=== PATIENT | female | born 1955 | race American Indian/Alaskan Native ===

== ENCOUNTER 2017-08-26 15:48 | Emergency (ER) | payer OTHER ==
[2017-08-26 16:10] VITALS: RESP 18; TEMP 98.2; O2SAT 100
--- NOTE | 2017-08-26 16:46 | ED PDOC ---
HPI: Chest Pain History Per: Patient History/Exam Limitations: no limitations Current Symptoms Are (Timing): Still Present Pain Scale Rating Of: 7 Quality: Sharp Associated Symptoms: denies: Nausea, Dyspnea, Diaphoresis, Syncope <Helio Youngkaris - Last Filed: 08/26/17 19:30> <Lawrence Coyne - Last Filed: 08/26/17 19:34> Time Seen by Provider: 08/26/17 16:28 Chief Complaint (Nursing): Chest Pain Additional Complaint(s): HPI: 62 yo female with unremarkable PMHx, who presents to the ED with c/o right sided chest pain since yesterday, the patient states she relates this pain to a "bad movement" she performed when she tried to get something behind a couch, she states that the pain is sharp on her upper right side close to her shoulder , the pain has no radiation, increases with coughing, sneezing and movement of the right arm, denies palpitations, numbness, left side chest pain, weakness, SOB, N/V, abdominal pain, fever or chills. (Renetta Young) Past Medical History - Medical History PMH: No Chronic Diseases - Surgical History Surgical History: No Surg Hx - Family History Family History: States: Diabetes - Living Arrangements Living Arrangements: With Family - Social History Current smoker - smoking cessation education provided: No Alcohol: Social Drugs: Denies <Helio Youngkaris - Last Filed: 08/26/17 19:30> <Lawrence Coyne Y - Last Filed: 08/26/17 19:34> Vital Signs: Last Vital Signs Temp 98.2 F 08/26/17 16:08 Pulse 61 08/26/17 16:08 Resp 18 08/26/17 16:08 BP 166/83 H 08/26/17 16:08 Pulse Ox 100 08/26/17 19:30 - Allergies Allergies/Adverse Reactions: Allergies Allergy/AdvReac Type Severity Reaction Status Date / Time No Known Allergies Allergy Verified 08/26/17 15:54 GLORIA Risk Score for UA/NSTEMI - GLORIA Risk Score Age > 64: NO 3 or more CAD Risk Factors: NO Known CAD (Stenosis greater than 50%): NO Severe Angina: NO EKG ST changes greater than 0.5mm: NO Positive Cardiac Marker: NO GLORIA Score: 0 Risk %: 5% <Renetta Young - Last Filed: 08/26/17 19:30> Curb-65 Severity Score - CURB-65 Severity Score Confusion: No Bun >19mg/dl (>7mmol/L): No Respiratory Rate greater than/equal to 30: No Systolic BP <90 or Diastolic BP less than/equal 60mmHg: No Age >64: No Curb-65 Score: 0 Percentage 30-day mortality: 0.6% <Renetta Young - Last Filed: 08/26/17 19:30> Wells Criteria for PE - Wells Criteria for Pulmonary Embolism Clinical Signs and Symptoms of DVT: No P.E is #1 Diagnosis, or Equally Likely: No Heart Rate >100: No Immobilization at least 3 days;Surgery previous 4 weeks: No Previous, objectively diagnosed PE or DVT: No Hemoptysis: No Malignancy w/treatment within 6 months, or palliative: No Total Score: 0 <Renetta Young Last Filed: 08/26/17 19:30> Review of Systems Cardiovascular: Negative for: Palpitations, Orthopnea, Edema, Light Headedness Respiratory: Negative for: Cough, Shortness of Breath, Hemoptysis, SOB with Exertion <Renetta Young Last Filed: 08/26/17 19:30> Physical Exam - Physical Exam Appears: Positive for: No Acute Distress Skin: Positive for: Normal Color, Warm Eye Exam: Positive for: EOMI, PERRL Neck: Positive for: Normal, Supple Cardiovascular/Chest: Positive for: Regular Rate, Rhythm, Other (there is tenderness to palpation of Right upper side of chest). Negative for: JVD Respiratory: Positive for: Normal Breath Sounds Gastrointestinal/Abdominal: Positive for: Normal Exam, Soft Neurologic/Psych: Positive for: Alert, Oriented <Renetta Young - Last Filed: 08/26/17 19:30> - Laboratory Results Result Diagrams: 08/26/17 17:35 08/26/17 17:35 - ECG O2 Sat by Pulse Oximetry: 100 <Renetta Young Last Filed: 08/26/17 19:30> - Laboratory Results Result Diagrams: 08/26/17 17:35 08/26/17 17:35 <DorethaLawrence Y - Last Filed: 08/26/17 19:34> Medical Decision Making <Renetta Young - Last Filed: 08/26/17 19:30> <Lawrence Coyne - Last Filed: 08/26/17 19:34> Medical Decision Making: Patient seen and examined in the ED with C/o right sided chest wall pain of x 2 days duration, that increases with cough, sneezing and right arm movements, negative for SOB, palpitations or arm numbness. PE: reproducible pain to palpation of right upper chest area ED course: EKG NSR negative for ACS, Cardiac tropnin wnl, CXR done reports no active disease Toradol administered 15 mg IVP x 1 dose in the ER with patient report of improvement of pain. Decision: Dx Chest wall tenderness Patient instructed to returned to the ED if symptoms of chest pain persists or increases, SOB, palpitation, or any new symptom. instructions given to f/u with PCP in 1 to 2 days. (Renetta Young) Patient seen with resident Patient complaining of musculoskeletal pain in right axilla area, no trauma, better with toradol EKG and troponin negative. She is stable for d/c Elevated blood pressure noted. Patient told to f/u with PMD. (Lawrence Coyne) Disposition - Disposition Disposition Time: 07:00 <Renetta Young - Last Filed: 08/26/17 19:30> <Lawrence Coyne - Last Filed: 08/26/17 19:34> - Clinical Impression Clinical Impression: Chest wall pain - Disposition Referrals: [facility] [Outside] Condition: IMPROVED Additional Instructions: follow up with your primary doctor (dr orourke) in 1-2 days for blood pressure control return to the ED with any worsening or concerning symptoms Instructions: Costochondritis Forms: [employer] (Azeri)
--- NOTE | 2017-08-26 17:20 | RAD ---
Date of service: 08/26/2017 HISTORY: r chest wall reproducible pain COMPARISON: No prior. TECHNIQUE: Chest PA and lateral FINDINGS: LUNGS: Left midlung atelectasis/scarring. No focal consolidation. PLEURA: No significant pleural effusion identified. No pneumothorax apparent. CARDIOVASCULAR: Atherosclerotic aortic calcifications. Cardiomediastinal silhouette enlarged. OSSEOUS STRUCTURES: Degenerative change. VISUALIZED UPPER ABDOMEN: Right upper quadrant surgical clips. OTHER FINDINGS: None. IMPRESSION: No active disease.
[2017-08-26 17:42] LABS: BASO % 0.8 % (0.0-2.0); EOS # 0.2 K/uL (0.0-0.7); EOS % 3.4 % (0.0-4.0); HEMOGLOBIN 13.9 g/dL (12.0-16.0); LYMPH # 1.4 K/uL (1.0-4.3); LYMPH % 22.3 % (20.0-40.0); MEAN CELL VOLUME 98.5 fl (81.0-99.0); MEAN CORPUSCULAR HEMOGLOBIN 33.6 pg (27.0-31.0); MEAN CORPUSCULAR HGB CONC 34.2 g/dL (33.0-37.0); MEAN PLATELET VOLUME 9.5 fl (7.2-11.7); MONO # 0.7 K/uL (0.0-0.8); MONO % 11.5 % (0.0-10.0); NEUT # 3.8 K/uL (1.8-7.0); RBC 4.15 Mil/uL (3.80-5.20); RED CELL DISTRIBUTION WIDTH 13.9 % (11.5-14.5); WHITE BLOOD COUNT 6.1 K/uL (4.8-10.8)
[2017-08-26 17:49] LABS: ALB/GLOB RATIO 1.1 (1.0-2.1); ALBUMIN 4.6 g/dL (3.5-5.0); GFR AFRICAN-AMERICAN > 60; GFR NON-AFRICAN AMERICAN > 60
[2017-08-26 17:52] LABS: ALT/SGPT 36 U/L (9-52); AST/SGOT 60 U/L (14-36); BLOOD UREA NITROGEN 12 mg/dl (7-17)
[2017-08-26 19:51] VITALS: BP 175/80; PULSE 62
== END 2017-08-26 18:51 | disposition home or self-care (01) ==
LOC: H.ER 15:48
DX: R07.89 Other chest pain (principal)
CPT/HCPCS: 71046; 80053; 84484; 85025; 96374; 99284; J1885